=== PATIENT | female | born 1935 | race Caucasian/White ===

== ENCOUNTER 2021-05-16 17:35 | Observation (INO) | payer MEDICARE ==
[2021-05-16 18:07] LABS: #Basophils 0.1 10x3/uL (0.0-0.2); #Eosinphils 0.4 10x3/uL (0.0-0.5); #Monocytes 1.2 10x3/uL (0.0-1.1); #Neutrophils 4.9 10x3/uL (1.5-8.4); %Basophils 1.2 % (0.0-2.0); %Eosinophils 4.3 % (0.0-6.0); %Lymphocytes 28.2 % (18.0-47.0); %Monocytes 12.7 % (0.0-10.0); %Neutrophils 53.4 % (40.0-75.0); Mean Corpuscular HGB CONC 32.2 g/dL (32.0-36.0); Mean Corpuscular Hemoglobin 31.8 pg (27.0-33.0); Mean Corpuscular Volume 98.9 fl (81.6-98.3); Mean Platelet Volume 9.2 fl (7.4-10.4); Platelet Count 285 10x3/uL (150-450); RBC Distribution Width 15.8 % (11.5-14.5); Red Blood Cell (RBC) Count 3.77 10x6/uL (3.90-5.03); White Blood Cell (WBC) Count 9.2 10x3/uL (3.5-10.5)
[2021-05-16 18:14] LABS: ALT (SGPT) 21 U/L (8-55); AST (SGOT) 26 U/L (5-34); Albumin 4.4 g/dL (3.4-4.8); Alkaline Phosphatase 70 U/L (40-110); Anion Gap 11 mmol/L (10-20); BUN (Urea Nitrogen) 14 mg/dL (9.8-20.1); Bilirubin, Total 0.2 mg/dL (0.2-1.2); Calc. Creatinine Clearance 0 mL/min (70-130); Calcium 9.2 mg/dL (7.8-10.44); Carbon Dioxide 27 mmol/L (23-31); Chloride 98 mmol/L (98-107); Globulin 3.2 g/dL (2.4-3.5); Glucose 118 mg/dL (83-110); Protein, Total 7.6 g/dL (5.8-8.1); Sodium 132 mmol/L (136-145)
[2021-05-16] MEDS ORDERED: Losartan 25 MG TAB ONE (19:35)
[2021-05-16] MEDS ORDERED: Calcium Carbonate 500 MG ChewTAB PO PRN (21:14)
[2021-05-16] MEDS ORDERED: Acetaminophen 325 MG TAB PO PRN (21:14)
[2021-05-16] MEDS ORDERED: Ondansetron PF 4 MG/2 ML Vial IVP PRN (21:14)
[2021-05-16] MEDS ORDERED: Senokot S 8.6-50 MG TAB PO PRN (21:14)
[2021-05-16] MEDS ORDERED: HYDROcodone/Acetaminophen 5/325 mg Tablet PO PRN (21:14)
[2021-05-16 22:18] LABS: SARS-CoV-2 NAA Rapid Test Not Detected (NotDetected)
[2021-05-16] MEDS ORDERED: Mirtazapine 15 MG TAB PO SCH (22:45)
[2021-05-16] MEDS ORDERED: Metoprolol Tartrate 5 MG/5 ML VIAL IVP SCH (23:45)
[2021-05-16 23:53] VITALS: BMI 21.4
[2021-05-17] MEDS ORDERED: Sodium Chloride 0.9% 250 ML IV SCH (00:30)
[2021-05-17] MEDS ORDERED: Sodium Chloride 0.9% 250 ML 250 ML IVPB SCH (00:45)
[2021-05-17] MEDS ORDERED: FLU VACC QS2021-22(65YR UP)/PF 240 MCG/0.7 ML SYRINGE IM ONE (01:30)
[2021-05-17 06:48] LABS: Anion Gap 9 mmol/L (10-20); BUN (Urea Nitrogen) 9 mg/dL (9.8-20.1); Calc. Creatinine Clearance 51 mL/min (70-130); Calcium 8.8 mg/dL (7.8-10.44); Carbon Dioxide 26 mmol/L (23-31); Cardiac Risk 2.7 (Less than 4.5); Chloride 105 mmol/L (98-107); Cholesterol 145 mg/dl (< 200 Desired); Glucose 100 mg/dL (83-110); HDL Cholesterol 54 mg/dL (>60 Neg Risk); LDL Cholesterol, Calculated 76 mg/dL; Magnesium 1.9 mg/dL (1.6-2.6); Potassium 4.3 mmol/L (3.5-5.1); Sodium 136 mmol/L (136-145); Triglycerides 77 mg/dL (Less than 150)
[2021-05-17] MEDS ORDERED: Acetaminophen 500 MG TAB PO PRN (08:10)
[2021-05-17] MEDS ORDERED: Acetaminophen 650 MG Suppository PR PRN (08:10)
[2021-05-17] MEDS ORDERED: hydrALAZINE 20 MG/ML VIAL SLOW IVP PRN ×2 (08:19→16:00)
[2021-05-17] MEDS ORDERED: Labetalol HCl 100 MG/20 ML VIAL SLOW IVP PRN ×2 (08:20→16:00)
[2021-05-17] MEDS ORDERED: Losartan 25 MG TAB PO SCH (09:00)
[2021-05-17] MEDS: Enoxaparin Sodium 40 MG/0.4 ML SYRINGE SC SCH (09:10)
[2021-05-17] MEDS: Hydroxychloroquine Sulfate 200 MG TAB PO SCH (09:11)
[2021-05-17] MEDS: Metamucil PACK PO SCH (09:11)
[2021-05-17] MEDS: PARoxetine 20 MG TAB PO SCH (09:12)
[2021-05-17] MEDS: Aspirin 81 mg Enteric Coated Tablet PO SCH (09:12)
[2021-05-17] MEDS: Folic Acid 1 MG TAB PO SCH (09:12)
[2021-05-17] MEDS ORDERED: Atorvastatin Calcium 10 MG TAB PO SCH (21:00)
[2021-05-17] MEDS ORDERED: Mirtazapine 15 MG TAB PO SCH (21:00)
[2021-05-17] MEDS ORDERED: Atorvastatin Calcium 40 MG TAB PO SCH ×2 (21:00)
[2021-05-18] MEDS: Aspirin 81 mg Enteric Coated Tablet PO SCH (09:26)
[2021-05-18] MEDS: Hydroxychloroquine Sulfate 200 MG TAB PO SCH (09:26)
[2021-05-18] MEDS: Metamucil PACK PO SCH (09:26)
[2021-05-18] MEDS: Folic Acid 1 MG TAB PO SCH (09:26)
[2021-05-18] MEDS: PARoxetine 20 MG TAB PO SCH (09:26)
[2021-05-18] MEDS: Enoxaparin Sodium 40 MG/0.4 ML SYRINGE SC SCH (09:26)
[2021-05-18 14:06] VITALS: BP 133/74; TEMP 98.6
== END 2021-05-18 16:08 | disposition home or self-care (01) ==
LOC: CSHERS 17:35 → CSHTELE 17:36
PROVIDERS: ADMIT Student in an Organized Health Care Education/Training Program; ATTEND Family Medicine
DX: R47.01 Aphasia (principal); I47.1 Supraventricular tachycardia; I16.0 Hypertensive urgency; M48.02 Spinal stenosis, cervical region; M43.12 Spondylolisthesis, cervical region; M47.812 Spondylosis without myelopathy or radiculopathy, cervical region; G95.89 Other specified diseases of spinal cord; Z98.890 Other specified postprocedural states; E78.5 Hyperlipidemia, unspecified; M06.9 Rheumatoid arthritis, unspecified; Z86.79 Personal history of other diseases of the circulatory system; Z95.820 Peripheral vascular angioplasty status with implants and grafts; I12.9 Hypertensive chronic kidney disease with stage 1 through stage 4 chronic kidney disease, or unspecified chronic kidney disease; N18.2 Chronic kidney disease, stage 2 (mild); F41.9 Anxiety disorder, unspecified; F32.A Depression, unspecified; Z20.822 Contact with and (suspected) exposure to COVID-19; Z79.899 Other long term (current) drug therapy; Z79.891 Long term (current) use of opiate analgesic
CPT/HCPCS: 70450; 70551; 71045; 72141; 80048; 80053; 80061; 83735; 84443; 84484; 85025; 93005; 93306; 93880; 94760; 96372 ×2; 96374; 96375; 97110; 97116 ×2; 97139 ×2; G0378 ×4; U0002; 36415; 93010; J1650; J7050